=== PATIENT | female | born 1955 | race Caucasian/White ===

== ENCOUNTER 2020-01-30 16:51 | Emergency (ER) | payer MEDICARE, OTHER, SELFPAY ==
[2020-01-30 17:23] VITALS: BP 167/84; PULSE 70; RESP 18; TEMP 36.9; O2SAT 100
--- NOTE | 2020-01-30 17:24 | ED.EAR ---
HPI - Ear Problem General Chief complaint: Ear Stated complaint: left ear pain/sore throat Time Seen by Provider: 01/30/20 17:24 Source: patient Mode of arrival: ambulatory Limitations: no limitations History of Present Illness HPI Narrative: Madhavi Hernandez is a 64 yo female with a PMH of HTN, diabetes,who comes to express care with L ear pain that radiates into L side of throat. It started 1 day ago and has gotten worse. Has been swimming a number of times. No fever, sore throat, pain on swallowing Related Data Home Medications Medication Instructions Recorded Confirmed amlodipine 5 mg PO DAILY 01/30/20 01/30/20 dulaglutide [Trulicity] 1.5 mg SUBCUT WEEKLY 01/30/20 01/30/20 labetalol 300 mg PO TID 01/30/20 01/30/20 meloxicam 15 mg PO DAILY 01/30/20 01/30/20 metformin 500 mg PO BID 01/30/20 01/30/20 pravastatin 20 mg PO DAILY 01/30/20 01/30/20 spironolactone 25 mg PO DAILY 01/30/20 01/30/20 valsartan-hydrochlorothiazide 1 tablet PO DAILY 01/30/20 01/30/20 Allergies Allergy/AdvReac Type Severity Reaction Status Date / Time No Known Allergies Allergy Verified 01/30/20 17:09 Review of Systems Review of Systems: Narrative: CONSTITUTIONAL: Denies fever, chills, sweats. EYES: Denies visual changes, redness, discharge. ENT: Denies rhinorrhea, congestion, sore throat, L otalgia. CARDIOVASCULAR: Denies chest pain, palpitations, edema. RESPIRATORY: Denies dyspnea, wheezing, cough GASTROINTESTINAL: Denies abdominal pain, nausea, vomiting, diarrhea. GENITOURINARY: Denies dysuria, hematuria, abnormal discharge SKIN: Denies rash or itching. NEUROLOGIC: Denies numbness, or focal weakness. PSYCHIATRIC: Denies anxiety or depression. [facility] Family History Family History Other Diabetes mellitus Heart disease Hypertension Social History Social History (Updated 01/30/20 @ 17:36 by Carri Oscar CNP) Smoking status: Never smoker Alcohol intake: current Comments At time of signature, I agree with nursing past medical, surgical, social and family history. There is no relevant family history pertinent to the presenting complaint. Exam Narrative: Exam Narrative: GENERAL: This is a well-nourished, well-developed patient, in mild distress. HEAD: normocephalic, atraumatic. EYES: Sclera clear/white. Vision is grossly intact. EARS: External ears normal, auditory canal on R clear and without drainage, L canal erythema with fluid behind TM. without perforation. Hearing grossly intact. NOSE: External nose normal without nasal discharge, nares without redness, no rhinorrhea. THROAT: Mucous membranes moist, posterior pharynx pink NECK: Neck supple, CARDIOVASCULAR: Regular rate and rhythm without murmurs, gallops, or rubs. RESPIRATORY: Clear to auscultation. Breath sounds equal bilaterally. No wheezes, rales, or rhonchi. GASTROINTESTINAL: Abdomen soft, non-tender, SKIN: warm, intact with no suspicious lesions or rash, good texture and turgor. NEURO: awake, alert, and oriented to person, place and time. There were no obvious focal neurologic abnormalities. Steady gait EXTREMITIES: Normal range of motion. BACK: Nontender without deformity Course Course Emergency Course: started on ear drops to L ear- po amoxicillin. Follow up with pcp Vital Signs Vital signs: Vital Signs Temperature 98.4 F 01/30/20 17:23 Pulse Rate 70 01/30/20 17:23 Respiratory Rate 18 01/30/20 17:23 Blood Pressure 167/84 H 01/30/20 17:23 Pulse Oximetry 100 01/30/20 17:23 Temperature 98.4 F 01/30/20 17:23 Pulse Rate 70 01/30/20 17:23 Respiratory Rate 18 01/30/20 17:23 Blood Pressure 167/84 H 01/30/20 17:23 Pulse Oximetry 100 01/30/20 17:23 Medical Decision Making Differential Diagnosis Differential Diagnosis: otitis vs viral infection vs swimmers ear Vital Signs Vital Signs: Vital Signs Temperature 98.4 F 01/30/20 17:23 Pulse Rate 70 01/30/20 17:
== END 2020-01-30 17:55 | disposition home or self-care (01) ==
PROVIDERS: Emergency Provider Nurse Practitioner; PCP Internal Medicine Geriatric Medicine
DX: H66.002 Acute suppurative otitis media without spontaneous rupture of ear drum, left ear (principal); I10 Essential (primary) hypertension; E11.9 Type 2 diabetes mellitus without complications; Z79.84 Long term (current) use of oral hypoglycemic drugs
CPT/HCPCS: 99213; G0463